=== PATIENT | female | born 1930 | race African-American/Black ===

== ENCOUNTER 2016-11-23 11:23 | Emergency (ER) | payer OTHER ==
[~2016-11-23] VITALS: Ht 165.1 cm; Wt 49.9 kg
--- NOTE | ~2016-11-23 | EKG ---
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
[~2016-11-23 11:23] MED LIST: ACIDOPHILUS1 EAC2 PO; ALLOPURINOL 10100 M1 PO; ASPIR 8181 M1 PO; ASPIRIN81 M2 PO; AUGMENTIN 500-1 EACH PO; DOXYCYCLINE HYC50 MG PO; HYDRALAZINE 10M10 MG PO; IRON325 PO; KEFLEX500 MG PO; LASIX 40 MG TAB40 M1 PO; LASIX 40 MG TAB40 M2 PO; MARINOL 2.5 MG2.5 M1 PO; MULTIVITAMINS PO; PEPCID20 MG PO; POTASSIUM20 PO; PRAMOSONE 1%28.4 GM TP; PROCRIT40000 UNIT SUBQ; REMERON15 MG PO; RENAL CAPS SOFTG1 MG PO; TYLENOL325 MG PO; VITAMIN D 5050000 I1 PO; VITAMIN D400 UNI1 PO; VITAMINC500 PO; [UNRECOGNIZED DRUG - CODE] IJ
[2016-11-23 12:26] LABS: ABSOLUTE NEUTROPHILS 2.1 thou/uL (1.4-8.2); BASOPHILS 0.9 % (0.0-2.0); EOSINOPHILS 1.2 % (0.0-3.0); HEMATOCRIT 37.4 % (37.0-47.0); HEMOGLOBIN 11.9 gm/dL (12.0-15.0); LYMPHOCYTES 20.3 % (24.0-44.0); MCH 30.1 pg (26.0-34.0); MCHC 31.8 g/dL (28.0-37.0); MCV 94.7 fL (80.0-100.0); MONOCYTES 10.9 % (1.0-8.0); PLATELET COUNT 140 thou/uL (150-400); POLYS 66.7 % (36.0-66.0); RBC 3.95 mil/uL (4.20-5.00); RDW 16.1 % (10.5-14.5); WBC 3.1 thou/uL (4.0-11.0)
[2016-11-23 12:28] LABS: MANUAL DIFF NO
[2016-11-23 12:33] LABS: CALCIUM 8.5 mg/dL (8.5-10.1); CREATININE 3.3 mg/dL (0.6-1.0); POTASSIUM 4.2 mmol/L (3.5-5.1)
[2016-11-23 12:45] LABS: TROPONIN-I 0.17 ng/mL (<0.04-0.07)
== END 2016-11-23 15:25 | disposition home or self-care (01) ==
LOC: ER 11:23
PROVIDERS: Emergency Medicine
DX: I48.91 Unspecified atrial fibrillation (principal); M10.9 Gout, unspecified; K21.9 Gastro-esophageal reflux disease without esophagitis; F03.90 Unspecified dementia, unspecified severity, without behavioral disturbance, psychotic disturbance, mood disturbance, and anxiety; I13.0 Hypertensive heart and chronic kidney disease with heart failure and stage 1 through stage 4 chronic kidney disease, or unspecified chronic kidney disease; N18.4 Chronic kidney disease, stage 4 (severe); I50.9 Heart failure, unspecified; Z86.718 Personal history of other venous thrombosis and embolism; Z87.440 Personal history of urinary (tract) infections; Z90.710 Acquired absence of both cervix and uterus; Z86.2 Personal history of diseases of the blood and blood-forming organs and certain disorders involving the immune mechanism; Z86.14 Personal history of Methicillin resistant Staphylococcus aureus infection; Z88.8 Allergy status to other drugs, medicaments and biological substances; Z88.1 Allergy status to other antibiotic agents

== ENCOUNTER 2016-12-07 10:12 | Emergency (ER) | payer OTHER ==
[~2016-12-07] VITALS: Ht 149.9 cm; Wt 47.6 kg
--- NOTE | ~2016-12-07 | EKG ---
[place] [address] [address] [facility] 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 EUGENE : 1930 Requested By: Chirag Huston Order Number: [id number] MD: Galindo Barrios Measurements Intervals [place] Rate: 102 P: ME: QRS: -28 QRSD: 88 T: 130 QT: 372 QTc: 485 Interpretive Statements Atrial fibrillation Borderline left axis deviation Anterior infarct, old Nonspecific T abnormalities, lateral leads Compared to ECG 11/23/2016 12:52:37 No significant change was found Electronically Signed On 12-08-2016 8:05:38 CDT by Galindo Barrios [email or web address] <ELECTRONICALLY SIGNED> By: Galindo Barrios MD, [facility] 12/08/1605 1100 1100 Galindo Barrios MD, [facility] /EPI
[2016-12-07 11:08] LABS: ABSOLUTE NEUTROPHILS 2.3 thou/uL (1.4-8.2); BASOPHILS 0.5 % (0.0-2.0); EOSINOPHILS 3.6 % (0.0-3.0); HEMATOCRIT 38.7 % (37.0-47.0); HEMOGLOBIN 12.2 gm/dL (12.0-15.0); LYMPHOCYTES 15.1 % (24.0-44.0); MCH 30.3 pg (26.0-34.0); MCHC 31.5 g/dL (28.0-37.0); MCV 96.3 fL (80.0-100.0); MONOCYTES 7.3 % (1.0-8.0); POLYS 73.5 % (36.0-66.0); RBC 4.02 mil/uL (4.20-5.00); RDW 16.7 % (10.5-14.5); WBC 3.1 thou/uL (4.0-11.0)
[2016-12-07 11:16] LABS: ABG SAMPLE TYPE ARTERIAL; BE(vivo) -1.7 mmol/L (-2 to +3); HCO3 24.4 mmol/L (22.0-26.0); LACTATE 1.69 mmol/L (0.5-2.0); O2(CT) 16.7 mL/dL (15.0-23.0); O2Hb 91.7 % (92.0-98.0); PCO2 46.3 mmHg (35.0-45.0); PO2 71.1 mmHg (80.0-100.0); STICK SITE R.RADIAL; pH 7.339 (7.360-7.450); sO2 93.3 % (92.0-98.0); tCO2 25.8 mmol/L (24.0-30.0)
[2016-12-07 11:17] LABS: ABG COMMENT NO COMPLICATIONS.
[2016-12-07 11:19] LABS: MANUAL DIFF NO
[2016-12-07 11:22] LABS: CALCIUM 8.3 mg/dL (8.5-10.1); POTASSIUM 4.6 mmol/L (3.5-5.1)
[2016-12-07 11:33] LABS: MAGNESIUM 2.7 mg/dL (1.8-2.4); TOTAL BILIRUBIN 0.5 mg/dL (<0.1-1.0); TOTAL PROTEIN 7.3 g/dL (6.4-8.2); TROPONIN-I 0.19 ng/mL (<0.04-0.07)
[2016-12-07 12:38] LABS: ANISOCYTOSIS SLIGHT; OVALOCYTES FEW; PLATELET COUNT 92 thou/uL (150-400)
== END 2016-12-07 13:50 | disposition home or self-care (01) ==
LOC: ER 10:12
PROVIDERS: Emergency Medicine
DX: I13.0 Hypertensive heart and chronic kidney disease with heart failure and stage 1 through stage 4 chronic kidney disease, or unspecified chronic kidney disease (principal); N18.4 Chronic kidney disease, stage 4 (severe); I50.9 Heart failure, unspecified; I48.91 Unspecified atrial fibrillation; K21.9 Gastro-esophageal reflux disease without esophagitis; F03.90 Unspecified dementia, unspecified severity, without behavioral disturbance, psychotic disturbance, mood disturbance, and anxiety; D69.6 Thrombocytopenia, unspecified; R79.89 Other specified abnormal findings of blood chemistry; D72.819 Decreased white blood cell count, unspecified; Z88.1 Allergy status to other antibiotic agents; Z90.710 Acquired absence of both cervix and uterus; Z86.718 Personal history of other venous thrombosis and embolism; Z88.8 Allergy status to other drugs, medicaments and biological substances

== ENCOUNTER 2016-12-11 10:26 | Inpatient (IN) | payer OTHER ==
[~2016-12-11] VITALS: Ht 152.4 cm; Wt 59.9 kg
--- NOTE | ~2016-12-11 | HC ---
[facility] [place] [address] CONSULTATION Name: JODIE STARR Room #: 216-P ADM IN M.R.#: [id number] Admission: 12/11/16 Attend Phys: Delfino Perez MD Discharge: Date of : 31 Report #: [id number] THIS REPORT FOR: //name// CC: Delfino Souzaloretta [facility] DATE OF SERVICE: 12/13/2016 RENAL CONSULTATION REASON FOR CONSULTATION: Acute on chronic kidney disease. HISTORY OF PRESENT ILLNESS: This 86-year-old female has known advanced chronic kidney disease stage IV. She was hospitalized at [facility] in 11/2015 with acute on chronic kidney disease. I saw her at that time, but I have had no followup since that hospitalization. Her baseline creatinine value at the time of discharge from the hospital in 2015 was as low as 2.4. She presented to the hospital on 12/07/2016 with a creatinine of 3.0. Her creatinine has risen to 3.6, prompting today's renal consultation. The patient has a history of a left pelvic kidney as well as some hydronephrosis on her right kidney as suggested by previous renal ultrasound. The patient was hospitalized at this time with decline in overall status. PAST MEDICAL HISTORY: The patient is a poor historian and unable to provide much in the way of meaningful history. She does have known previous CVA. She has a history of atrial fibrillation, altered mental status, previous decubitus, chronic hypotension, and urinary tract infection. ALLERGIES: Reported to HEPARIN, SULFAMETHOXAZOLE, TRIMETHOPRIM, and VANCOMYCIN. MEDICATIONS: On admission to the hospital are reported to include Tylenol, erythropoietin, Pepcid, aspirin, Tums, Rolando, Nepro, Marinol, and Remeron. FAMILY HISTORY: Negative for renal disease. PERSONAL AND SOCIAL HISTORY: The patient is a long-term resident. She does not smoke, use alcohol, or have any history of substance abuse. REVIEW OF SYSTEMS: Not obtainable from the patient at this time. PHYSICAL EXAMINATION: GENERAL: Reveals an elderly, debilitated female who is poorly communicative, but in no acute distress. VITAL SIGNS: Blood pressure 115/61, pulse 72, temperature 95.9, and [facility] [address] [place] [address] CONSULTATION Name: JODIE STARR Room #: 216-[facility] IN M.R.#: [id number] Admission: 12/11/16 Attend Phys: Delfino Perez MD Discharge: Date of : 31 Report #: [id number] respirations 16. SKIN: Warm and dry. There is 1+ chronic brawny edema changes of the lower extremities bilaterally. HEENT: Mucous membranes are dry. The head is normocephalic and atraumatic. The sclerae are white. Conjunctivae are not injected. The pharynx is benign. NECK: There is no JVD present. Supple. LUNGS: Lung ballesteros are grossly clear to percussion and auscultation. CARDIOVASCULAR: Examination reveals an irregularly irregular rate and rhythm without gross murmur or rub. ABDOMEN: Soft and nontender. GENITOURINARY: There is no Powers catheter in place. NEUROLOGIC: Reveals the patient to be arousable, but a poor historian. She has no focal neurologic deficit. LABORATORY STUDIES: Available at this time include sodium 145, potassium 4.5, chloride 109, CO2 23, BUN 89, creatinine 3.6, glucose 83, calcium 7.9, phosphorus 5.0, and albumin 2.6. White blood cell count 3900, hemoglobin 13.2, hematocrit 40.8, and platelet count 103,000. Urinalysis from admission reveals cloudy yellow urine, specific gravity 1.020, pH 5.0, 2+ protein, 3+ blood, and moderate bacteria seen. ASSESSMENT: 1. Acute kidney injury in this patient who appears relatively dehydrated. I will administer cautious IV isotonic hydration and follow serial laboratory studies, I and O and daily weights. I will place a Powers catheter at this time and obtain a clean urine specimen for analysis and culture. 2. Chronic kidney disease. 3. Generalized debility. 4. Hypertension. 5. History of prior cerebrovascular accident. PLAN: There are no indications for undertaking acute hemodialysis at this time. I do not feel that this patient is a very good candidate for maintenance hemodialysis. I will discuss support measures and likely recommendation to avoid dialysis as possible with the patient's family when they are available. Please see orders. <ELECTRONICALLY SIGNED> By: Tate Christine MD 12/17/16 1020 1229 1354 Tate Christine MD /nt
--- NOTE | ~2016-12-11 | HC ---
[facility] [place] [address] CONSULTATION Name: JODIE STARR Room #: 216-P ADM IN M.R.#: [id number] Admission: 12/11/16 Attend Phys: Delfino Perez MD Discharge: Date of : 31 Report #: [id number] THIS REPORT FOR: //name// CC: Delfino Perez [facility] DATE OF SERVICE: 12/12/2016 CHIEF COMPLAINT: Ulceration to the left lower extremity. HISTORY OF PRESENT ILLNESS: This is an 86-year-old female patient who is lying in bed and contracted. She is unable to answer any questions. She appears to be on a BiPAP device and I have been asked to see her with regard to wound care. The patient is unable to provide any specific information and cannot answer any questions. PAST MEDICAL HISTORY: Positive history of acute on chronic kidney failure, altered mental status, atrial fibrillation, cardiomegaly, chronic kidney disease, cerebrovascular accident, ulceration left leg and thrombocytopenia. ALLERGIES: Include HEPARIN, BACTRIM and VANCOMYCIN. SOCIAL HISTORY: Unknown. REVIEW OF SYSTEMS: Unobtainable due to the patient's level of alertness. MEDICATIONS: At this time include Levaquin, ceftriaxone, aspirin, pantoprazole, clindamycin, calcium carbonate, Atrovent, acetaminophen, polyethylene glycol, nitroglycerin, ondansetron, enoxaparin, levofloxacin, flumazenil, mirtazapine and . PHYSICAL EXAMINATION: VITAL SIGNS: Include temperature 98.0, pulse 83, respiratory rate of 18, blood pressure 105/54. GENERAL: This is a chronically ill-appearing female patient who is lying with her eyes closed with obvious contractures. HEENT: Head is normocephalic. The patient has a BiPAP mask on her face. NECK: Without swelling or obvious tenderness. LUNGS: Diminished. HEART: Regular rhythm. ABDOMEN: Soft. EXTREMITIES: Demonstrate flexion contractures at the hips and knees. She has diminished distal pulses, although the feet appear to be warm and dry. She has an absent left fifth toe that appears to be reasonably well healed. She has 2 small ulcerations on the lateral aspect of the left lower leg as well as a small ulceration on the medial aspect of the left first metatarsophalangeal joint. [address] [address] CONSULTATION Name: JODIE STARR Room #: [address] IN M.R.#: [id number] Admission: 12/11/16 Attend Phys: Delfino Perez MD Discharge: Date of : 31 Report #: [id number] CLINICAL IMPRESSION: 1. Ulceration to the left lower extremity. 2. Venous insufficiency by clinical exam and previous history. RECOMMENDATIONS: At this point in time, we will recommend topical silver foam and Kerlix to the affected areas, pressure relieving boots. She needs to be turned and repositioned every 2 hours. I appreciate being asked to see her in consultation. <ELECTRONICALLY SIGNED> By: Lokesh Schmitt MD 12/13/16 0911 1852 07 Lokesh Schmitt MD /nt
--- NOTE | ~2016-12-11 | 2DMMODE ---
[facility] [address] [place] [address] 2 D/M-MODE ECHOCARDIOGRAM Name: JODIE STARR Room #: 216-P ADM IN M.R.#: [id number] Admission: 12/11/16 Attend Phys: Delfino Perez, Discharge: Date of : 31 Date of Service: 12/12/16 1713 Report #: [id number] THIS REPORT FOR: //name// APPROVED REPORT Study performed: 12/12/2016 13:19:58 EXAM: Comprehensive 2D, Doppler, and color-flow Echocardiogram Patient Location: Bedside Room #: 216 Status: routine Other Information Study Quality: Adequate Technically limited study due to uncooperative patient. Indications Cardiomegaly Hx Atrial Fibrillation, CHF, Stroke 2D Dimensions RVDd: 43.46 mm LVEF(%): 40.24 (>50%) IVSd: 15.80 (7-11mm) LVOT Diam: 20.37 (18-24mm) LVDd: 51.65 mm PWd: 16.33 (7-11mm) Ascending Ao: 30.59 (22-36mm) LVDs: 41.45 (25-40mm) Aortic Root: 33.95 mm Ohara's LVEF: 40.24 % Volumes Left Atrial Volume (Systole) Single Plane 4CH: 98.84 mL Single Plane 2CH: 128.81 mL LA ESV Index: 79.00 mL/m2 Aortic Valve AoV Peak Giovanny.: 1.36 m/s AO Peak Gr.: 7.62 mmHg LVOT Max P.82 mmHg LVOT Max V: 0.67 m/s WILLY Vmax: 1.60 cm2 Mitral Valve IVRT: 119.95 ms Pulmonary Valve [facility] [address] [place] [address] 2 D/M-MODE ECHOCARDIOGRAM Name: JODIE STARR Room #: 216-[facility] IN .R.#: [id number] Admission: 12/11/16 Attend Phys: Delfino Perez, Discharge: Date of : 31 Date of Service: 12/12/16 1713 Report #: [id number] PV Peak Giovanny.: 0.77 m/s PV Peak Gr.: 2.40 mmHg Tricuspid Valve TR Peak Giovanny.: 2.63 m/s RAP Estimate: 10.00 mmHg TR Peak Gr.: 28.08 mmHg Left Ventricle The left ventricle is normal size. There is global hypokinesis of the left ventricle. Moderate concentric left ventricular hypertrophy. Left ventricular systolic function is severely decreased. LVEF is 25-30%. This study is not technically sufficient to allow evaluation of the LV diastolic function due to atrial fibrillation. Right Ventricle Right ventricle is dilated. Right ventricle is hypokinetic. Atria Left atrium is severely dilated. Right atrium is severely dilated. Aortic Valve Aortic valve is thickened and calcified. Trace aortic regurgitation. Mild aortic stenosis. Mitral Valve Moderate mitral annular calcification. Moderate mitral regurgitation. No evidence of mitral valve stenosis. Tricuspid Valve The tricuspid valve leaflets are thickened. There is severe tricuspid regurgitation. The right atrial pressure is estimated at 10 mmHg. There is mild-moderate pulmonary hypertension with an estimated PAP of 40 mmHg. Pulmonic Valve The pulmonary valve is normal in structure. Mild pulmonic regurgitation. Great Vessels The aortic root is normal in size. The ascending aorta is normal in size. IVC is dilated and collapses <50% with inspiration. Pericardium There is no pericardial effusion. Pleural Effusion [facility] [address] [place] [address] 2 D/M-MODE ECHOCARDIOGRAM Name: JODIE STARR Room #: 216-P [facility] IN M.R.#: [id number] Admission: 12/11/16 Attend Phys: Delfino Perez, Discharge: Date of : 31 Date of Service: 12/12/16 1713 Report #: [id number] noted. <Conclusion> Left ventricular systolic function is severely decreased. There is global hypokinesis of the left ventricle. LVEF 25%. Right ventricle is dilated. Both atria are severely dilated. Aortic valve is thickened and calcified. Mild aortic stenosis, no insufficiency. Moderate mitral annular calcification. Moderate mitral insufficiency There is mild-moderate pulmonary hypertension with an estimated PAP of 40 mmHg. There is no pericardial effusion. <ELECTRONICALLY SIGNED> By: Galindo Barrios MD, FAC 12/12/161712 12 12 Galindo Barrios MD, FACC /INF
--- NOTE | ~2016-12-11 | EKG ---
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 : 1930 Requested By: Jenny Gann Order Number: [id number] MD: Varun Pardo Measurements Intervals [place] Rate: 98 P: ND: QRS: -33 QRSD: 90 T: 133 QT: 371 QTc: 474 Interpretive Statements Atrial fibrillation Left axis deviation Anterior infarct, old Nonspecific T abnormalities, lateral leads Compared to ECG 12/07/2016 11:00:07 No significant changes Electronically Signed On 12-12-2016 12:48:05 CDT by Varun Pardo [email or web address] <ELECTRONICALLY SIGNED> By: Varun Pardo MD 12/12/16 1248 1046 1046 Varun Pardo MD /[facility]
--- NOTE | ~2016-12-11 | HC ---
[facility] [place] [address] CONSULTATION Name: JODIE STARR Room #: 216-P ADM IN M.R.#: [id number] Admission: 12/11/16 Attend Phys: Delfino Perez MD Discharge: Date of : 31 Report #: [id number] THIS REPORT FOR: //name// CC: Delfino Louis PRIMARY CARE PHYSICIAN: Rojas Louis MD. REFERRAL PHYSICIAN: Delfino Perez MD. REASON FOR REFERRAL: Hypoxia. HISTORY OF PRESENT ILLNESS: The patient is an 86-year-old female who was brought to the Emergency Room from [facility] with acute mental status change. She was found to be hypoxic. A pulmonary consultation was requested. The patient was admitted yesterday through the ER. She was felt to have urinary tract infection. She was on 2 liters of O2. She was placed on noninvasive positive pressure ventilation for an apparent acute hypercarbia with altered mental status. Although she is arousable, she remains quite somnolent, falling asleep quite easily. When she was admitted yesterday, she was not coherent though arousable. Otherwise, no recent febrile illness, nausea, vomiting, diarrhea, chest pain or productive cough. Portable chest x-ray on admission revealed cardiomegaly suggestive of biventricular enlargement along with enlarged right atrial border. PAST MEDICAL HISTORY: Notable for chronic kidney disease, stage 4; hypertension; history of DVT; atrial fibrillation, not on anticoagulants due to reaction to HEPARIN; history of recurrent UTIs; chronic venous stasis with chronic lower extremity wounds bilaterally; gout; peripheral vascular disease; anemia of chronic disease; anorexia; gastroesophageal reflux disease; dementia; cervical spinal stenosis, radiculopathy leading to progressive weakness. PAST SURGICAL HISTORY: Remarkable for hysterectomy for uterine fibroids. Left fifth toe amputation. ALLERGIES: HEPARIN, reactions unspecified, but she tolerates Lovenox; BACTRIM; VANCOMYCIN, reactions unspecified. MEDICATIONS: Reviewed, which include Procrit, Pepcid, aspirin, Tums, calcium supplements, Nephro, Marinol, Remeron. [address] [address] CONSULTATION Name: JODIE STARR Room #: 216-P [facility] IN M.R.#: [id number] Admission: 12/11/16 Attend Phys: Delfino Perez MD Discharge: Date of : 31 Report #: [id number] FAMILY HISTORY: Noncontributory. SOCIAL HISTORY: She has smoked remotely in the past, but quit many years ago. There is no history of alcohol use. She currently resides at [facility]. REVIEW OF SYSTEMS: Deferred as the patient is very somnolent. PHYSICAL EXAMINATION: GENERAL: She is arousable, but quite somnolent, tolerating BiPAP. VITAL SIGNS: Temperature is 98 degrees Fahrenheit, pulse is 100, respiratory rate is 18, blood pressure 100/54 mmHg, saturation 100%. HEENT: Normocephalic, atraumatic. NECK: Supple, without lymphadenopathy or thyromegaly. CHEST: Breath sounds are decreased due to poor effort. No obvious wheezes or rales. CARDIOVASCULAR: Normal S1, S2. There are no murmurs or gallop. There is no JVD. There is no carotid bruit. Pulses are 2+/4+ bilaterally. BREASTS: Deferred. ABDOMEN: Soft, nontender. GENITOURINARY AND RECTAL: Deferred. EXTREMITIES: No cyanosis, clubbing, edema. MUSCULOSKELETAL: Notable for moderate muscle atrophy diffusely. LABORATORY DATA: Chest x-ray as mentioned above showing marked cardiomegaly with what appears to be right-sided heart enlargement including right atrium, mild left lower lobe opacity. Electrolytes: Sodium 144, potassium 4.6, chloride 108, CO2 is 22, BUN is 94, creatinine is 3.3. Liver function tests are grossly unremarkable. WBC is 4000, hemoglobin 12.9, platelets mildly reduced 107,000. Troponin 0.19, albumin 2.7. Arterial blood gas revealed pH 7.32, pCO2 of 44, pO2 57 on FiO2 40%. IMPRESSION: 1. Acute hypoxic, hypercapnic respiratory failure in this 86-year-old female. Etiology is related to presumed sepsis leading to toxic encephalopathy leading to hypoventilation. No prior history of chronic lung disease. 2. Urinary tract infection with sepsis. 3. Encephalopathy due to above, toxic and metabolic. 4. Acute on chronic kidney failure, chronic kidney disease, now with mild metabolic acidosis. 5. Dementia. 6. Remote history of deep venous thrombosis. 7. Chronic atrial fibrillation, apparently not on anticoagulation with an apparent reaction to heparin products in the past. 8. Peripheral vascular disease. [facility] [address] [place] [address] CONSULTATION Name: BRUCERENJODIE Room #: 216-P ADM IN M.R.#: [id number] Admission: 12/11/16 Attend Phys: Delfino Perez MD Discharge: Date of : 31 Report #: [id number] 9. Cervical spinal stenosis with radiculopathy leading to progressive weakness and debility. 10. Protein calorie malnutrition, severe. RECOMMENDATION: We will continue noninvasive positive pressure ventilation, wean O2 for saturation 90%. In terms of cardiomegaly, recommend echocardiogram to assess LV function, pulmonary artery pressures. Chest x-ray suggests probable right-sided enlargement also. DVT and GI prophylaxis will be addressed. Overall, prognosis felt to be guarded given advanced age, dementia, generalized debility and weakness. If encephalopathy and somnolence persists or worsens, we recommend ICU monitoring. Thank you for this consultation. <ELECTRONICALLY SIGNED> By: Robert Ibrahim MD 12/16/16 1600 1236 1840 Robert Ibrahim MD /nt
[2016-12-11 10:26] VITALS: BP 114/68
[2016-12-11 10:52] LABS: ABSOLUTE NEUTROPHILS 3.1 thou/uL (1.4-8.2); BASOPHILS 0.8 % (0.0-2.0); EOSINOPHILS 1.2 % (0.0-3.0); HEMATOCRIT 39.6 % (37.0-47.0); HEMOGLOBIN 12.9 gm/dL (12.0-15.0); LYMPHOCYTES 11.1 % (24.0-44.0); MCH 30.6 pg (26.0-34.0); MCHC 32.5 g/dL (28.0-37.0); MCV 94.3 fL (80.0-100.0); MONOCYTES 10.1 % (1.0-8.0); POLYS 76.8 % (36.0-66.0); RDW 17.5 % (10.5-14.5)
[2016-12-11 10:55] LABS: MANUAL DIFF NO
[2016-12-11 11:15] LABS: ANISOCYTOSIS 1+; LARGE PLATELETS SEVERAL; PLATELET COUNT 107 thou/uL (150-400); POLYCHROMASIA 1+
[2016-12-11 11:43] LABS: CALCIUM 8.8 mg/dL (8.5-10.1); CREATININE 3.1 mg/dL (0.6-1.0)
[2016-12-11 11:48] LABS: URINE BILIRUBIN NEGATIVE (Negative); URINE BLOOD 3+ (Negative); URINE COLOR YELLOW; URINE GLUCOSE-RANDOM* NEGATIVE (Negative); URINE KETONES NEGATIVE (Negative); URINE NITRITE NEGATIVE (Negative); URINE PROTEIN (DIPSTICK) 2+ (Negative); URINE UROBILINOGEN 0.2 E.U./dl (0.2-1.0)
[2016-12-11 12:09] LABS: CASTS None Seen /LPF (None Seen); SQUAMOUS >10 Many /LPF (0-3)
[2016-12-11 12:10] LABS: URINE RBC 3-10 Few /HPF (0-2); URINE WBC >25 Many /HPF (0-5)
[2016-12-11 12:11] LABS: CRYSTALS None Seen /LPF (None Seen); WBC CLUMPS Moderate (None Seen)
[2016-12-11 14:03] LABS: ABG SAMPLE TYPE ARTERIAL; BE(vivo) -0.8 mmol/L (-2 to +3); HCO3 25.4 mmol/L (22.0-26.0); LACTATE 2.13 mmol/L (0.5-2.0); O2(CT) 16.3 mL/dL (15.0-23.0); O2Hb 84.5 % (92.0-98.0); PCO2 47.8 mmHg (35.0-45.0); PO2 53.8 mmHg (80.0-100.0); pH 7.343 (7.360-7.450); sO2 85.9 % (92.0-98.0); tCO2 26.9 mmol/L (24.0-30.0)
[2016-12-11 14:04] LABS: STICK SITE R.RADIAL
[2016-12-11] MEDS ORDERED: JUVEN PACKET1 EACH PO (14:44)
[2016-12-11] MEDS ORDERED: TUMS PO (14:44)
[2016-12-11] MEDS ORDERED: NEPRO CARB STE237 ML PO (14:45)
[2016-12-11] MEDS ORDERED: MARINOL2.5 MG PO (14:46)
[2016-12-11] MEDS ORDERED: REMERON15 MG PO (14:47)
[2016-12-11 14:52] VITALS: BP 109/89
[2016-12-11 15:52] LABS: ABG SAMPLE TYPE ARTERIAL; BE(vivo) -2.1 mmol/L (-2 to +3); HCO3 24.2 mmol/L (22.0-26.0); LACTATE 2.24 mmol/L (0.5-2.0); O2(CT) 18.8 mL/dL (15.0-23.0); O2Hb 95.7 % (92.0-98.0); PCO2 47.5 mmHg (35.0-45.0); PO2 92.9 mmHg (80.0-100.0); STICK SITE R.RADIAL; pH 7.325 (7.360-7.450); sO2 96.5 % (92.0-98.0); tCO2 25.7 mmol/L (24.0-30.0)
[2016-12-11 16:00] VITALS: BP 125/83
[2016-12-11 20:23] VITALS: BP 117/78
[2016-12-11 23:30] VITALS: BP 139/79; BP 87/53
[2016-12-12 05:00] VITALS: BP 97/56
[2016-12-12 07:27] VITALS: BP 105/54
[2016-12-12 10:08] LABS: ALBUMIN 2.7 g/dL (3.4-5.0); CALCIUM 8.2 mg/dL (8.5-10.1); CREATININE 3.3 mg/dL (0.6-1.0); POTASSIUM 4.6 mmol/L (3.5-5.1); TOTAL BILIRUBIN 0.7 mg/dL (<0.1-1.0); TOTAL PROTEIN 6.9 g/dL (6.4-8.2)
[2016-12-12 10:29] LABS: ABG SAMPLE TYPE ARTERIAL; BE(vivo) -3.3 mmol/L (-2 to +3); HCO3 22.7 mmol/L (22.0-26.0); LACTATE 2.38 mmol/L (0.5-2.0); O2(CT) 16.5 mL/dL (15.0-23.0); O2Hb 88.1 % (92.0-98.0); PCO2 44.2 mmHg (35.0-45.0); PO2 57.8 mmHg (80.0-100.0); sO2 88.1 % (92.0-98.0)
[2016-12-12 10:30] LABS: STICK SITE R.BRACHIAL; pH 7.328 (7.360-7.450)
[2016-12-12 10:32] LABS: Pressure Support 8 cm H20
[2016-12-12 11:17] VITALS: BP 105/64
[2016-12-12 14:51] LABS: ABG SAMPLE TYPE ARTERIAL; BE(vivo) -3.3 mmol/L (-2 to +3); HCO3 22.6 mmol/L (22.0-26.0); O2(CT) 18.7 mL/dL (15.0-23.0); O2Hb 96.3 % (92.0-98.0); PCO2 43.6 mmHg (35.0-45.0); pH 7.332 (7.360-7.450); sO2 97.4 % (92.0-98.0); tCO2 23.9 mmol/L (24.0-30.0)
[2016-12-12 14:52] LABS: STICK SITE R.RADIAL
[2016-12-12 20:09] VITALS: BP 103/65
[2016-12-13 03:47] VITALS: BP 76/51
[2016-12-13 04:04] LABS: ALBUMIN 2.6 g/dL (3.4-5.0); CALCIUM 7.9 mg/dL (8.5-10.1); CREATININE 3.6 mg/dL (0.6-1.0); POTASSIUM 4.5 mmol/L (3.5-5.1)
[2016-12-13 04:33] LABS: WBC 3.9 thou/uL (4.0-11.0)
[2016-12-13 04:35] LABS: HEMATOCRIT 36.1 % (37.0-47.0); HEMOGLOBIN 11.6 gm/dL (12.0-15.0); MCH 30.4 pg (26.0-34.0); MCHC 32.1 g/dL (28.0-37.0); MCV 94.8 fL (80.0-100.0); RBC 3.81 mil/uL (4.20-5.00)
[2016-12-13 12:17] VITALS: BP 115/61
[2016-12-13 13:50] LABS: URINE BILIRUBIN NEGATIVE (Negative); URINE BLOOD 3+ (Negative); URINE COLOR YELLOW; URINE GLUCOSE-RANDOM* NEGATIVE (Negative); URINE KETONES NEGATIVE (Negative); URINE NITRITE NEGATIVE (Negative); URINE PROTEIN (DIPSTICK) 1+ (Negative); URINE UROBILINOGEN 0.2 E.U./dl (0.2-1.0)
[2016-12-13 14:09] LABS: AMORPHOUS URATES Moderate /LPF (None Seen); BACTERIA >30 Many /HPF (None Seen); CASTS None Seen /LPF (None Seen); SQUAMOUS None Seen /LPF (0-3); URINE RBC >20 Many /HPF (0-2); URINE WBC >25 Many /HPF (0-5)
[2016-12-13 16:52] VITALS: BP 90/57
[2016-12-13 19:41] VITALS: BP 122/81
[2016-12-14 03:26] VITALS: BP 104/74
[2016-12-14 04:09] LABS: ALBUMIN 2.9 g/dL (3.4-5.0); CREATININE 3.9 mg/dL (0.6-1.0); PHOSPHORUS 5.4 mg/dL (2.5-4.9); POTASSIUM 4.7 mmol/L (3.5-5.1)
[2016-12-14 04:16] LABS: HEMOGLOBIN 12.1 gm/dL (12.0-15.0)
[2016-12-14 04:18] LABS: HEMATOCRIT 37.4 % (37.0-47.0); MCH 30.7 pg (26.0-34.0); MCHC 32.4 g/dL (28.0-37.0); MCV 94.8 fL (80.0-100.0); RBC 3.95 mil/uL (4.20-5.00); RDW 16.8 % (10.5-14.5); WBC 3.9 thou/uL (4.0-11.0)
[2016-12-14 07:55] VITALS: BP 129/99
[2016-12-14 12:10] VITALS: BP 108/80
[2016-12-14 15:55] VITALS: BP 102/70
[2016-12-14 19:53] VITALS: BP 109/77
[2016-12-15 04:04] LABS: ALBUMIN 3.1 g/dL (3.4-5.0); CREATININE 4.3 mg/dL (0.6-1.0); PHOSPHORUS 5.7 mg/dL (2.5-4.9); POTASSIUM 4.9 mmol/L (3.5-5.1)
[2016-12-15 04:08] LABS: WBC 3.9 thou/uL (4.0-11.0)
[2016-12-15 04:11] LABS: HEMATOCRIT 40.8 % (37.0-47.0); HEMOGLOBIN 13.2 gm/dL (12.0-15.0); MCH 30.9 pg (26.0-34.0); MCHC 32.3 g/dL (28.0-37.0); MCV 95.8 fL (80.0-100.0); RBC 4.26 mil/uL (4.20-5.00); RDW 17.1 % (10.5-14.5)
[2016-12-15 04:16] VITALS: BP 97/55
[2016-12-15 08:32] VITALS: BP 106/68
[2016-12-15 11:38] VITALS: BP 107/81
[2016-12-15 15:30] VITALS: BP 105/64
[2016-12-15 20:30] VITALS: BP 125/93
[2016-12-16 00:01] VITALS: BP 149/110
[2016-12-16 04:40] VITALS: BP 151/111
[2016-12-16 06:05] LABS: HEMATOCRIT 37.5 % (37.0-47.0)
[2016-12-16 06:09] LABS: HEMOGLOBIN 11.9 gm/dL (12.0-15.0); MCH 30.7 pg (26.0-34.0); MCHC 31.7 g/dL (28.0-37.0); MCV 96.7 fL (80.0-100.0); RBC 3.87 mil/uL (4.20-5.00); RDW 17.4 % (10.5-14.5); WBC 4.5 thou/uL (4.0-11.0)
[2016-12-16 06:19] LABS: CALCIUM 7.5 mg/dL (8.5-10.1); CREATININE 4.4 mg/dL (0.6-1.0); POTASSIUM 4.3 mmol/L (3.5-5.1)
[2016-12-16 12:05] VITALS: BP 119/80
[2016-12-16 16:10] VITALS: BP 100/65
[2016-12-16 20:52] VITALS: BP 103/69
[2016-12-17 04:49] VITALS: BP 107/83
[2016-12-17 05:21] LABS: CALCIUM 7.9 mg/dL (8.5-10.1); CREATININE 4.7 mg/dL (0.6-1.0); POTASSIUM 4.4 mmol/L (3.5-5.1)
[2016-12-17 07:15] VITALS: BP 116/6
[2016-12-17 11:51] VITALS: BP 109/79
[2016-12-17 16:05] VITALS: BP 147/81
[2016-12-17 21:38] VITALS: BP 120/68
[2016-12-18 03:03] LABS: CALCIUM 7.9 mg/dL (8.5-10.1); CREATININE 4.8 mg/dL (0.6-1.0)
[2016-12-18 03:07] LABS: POTASSIUM 5.4 mmol/L (3.5-5.1)
[2016-12-18 06:00] VITALS: BP 121/76
[2016-12-18 07:45] VITALS: BP 109/77
[2016-12-18 12:28] VITALS: BP 132/90
[2016-12-18 15:10] LABS: URINE BILIRUBIN NEGATIVE (Negative); URINE BLOOD 3+ (Negative); URINE COLOR YELLOW; URINE GLUCOSE-RANDOM* NEGATIVE (Negative); URINE KETONES NEGATIVE (Negative); URINE LEUKOCYTES-REFLEX 3+ (Negative); URINE PROTEIN (DIPSTICK) NEGATIVE (Negative); URINE UROBILINOGEN 0.2 E.U./dl (0.2-1.0)
[2016-12-18 15:19] LABS: SQUAMOUS 0-3 Few /LPF (0-3); YEAST-REFLEX Present (None Seen)
[2016-12-18 15:20] LABS: CASTS None Seen /LPF (None Seen); CRYSTALS None Seen /LPF (None Seen)
[2016-12-18 18:11] VITALS: BP 112/64
[2016-12-18 19:38] VITALS: BP 114/65
[2016-12-19 03:03] LABS: ABSOLUTE NEUTROPHILS 3.9 thou/uL (1.4-8.2); BASOPHILS 1.2 % (0.0-2.0); EOSINOPHILS 2.1 % (0.0-3.0); HEMATOCRIT 37.5 % (37.0-47.0); HEMOGLOBIN 12.1 gm/dL (12.0-15.0); LYMPHOCYTES 11.7 % (24.0-44.0); MANUAL DIFF NO; MCH 30.7 pg (26.0-34.0); MCHC 32.3 g/dL (28.0-37.0); MCV 94.8 fL (80.0-100.0); MONOCYTES 7.8 % (1.0-8.0); PLATELET COUNT 99 thou/uL (150-400); POLYS 77.2 % (36.0-66.0); RBC 3.96 mil/uL (4.20-5.00); RDW 17.5 % (10.5-14.5); WBC 5.5 thou/uL (4.0-11.0)
[2016-12-19 03:14] LABS: ALBUMIN 2.8 g/dL (3.4-5.0); CALCIUM 7.6 mg/dL (8.5-10.1); CREATININE 4.8 mg/dL (0.6-1.0); MAGNESIUM 2.4 mg/dL (1.8-2.4); PHOSPHORUS 5.8 mg/dL (2.5-4.9); TOTAL PROTEIN 6.8 g/dL (6.4-8.2)
[2016-12-19 03:15] LABS: POTASSIUM 4.4 mmol/L (3.5-5.1)
[2016-12-19 05:53] VITALS: BP 106/73
[2016-12-19 09:03] VITALS: BP 155/76
[2016-12-19 18:12] VITALS: BP 115/66
[2016-12-19 20:00] VITALS: BP 114/75
[2016-12-20 03:10] LABS: ALBUMIN 2.8 g/dL (3.4-5.0); CALCIUM 7.4 mg/dL (8.5-10.1); CREATININE 4.6 mg/dL (0.6-1.0); MAGNESIUM 2.3 mg/dL (1.8-2.4); PHOSPHORUS 5.9 mg/dL (2.5-4.9); POTASSIUM 4.9 mmol/L (3.5-5.1)
[2016-12-20 03:43] VITALS: BP 125/70
[2016-12-20 08:55] VITALS: BP 130/75
[2016-12-20 12:30] VITALS: BP 108/67
[2016-12-20 17:40] VITALS: BP 132/98
[2016-12-20 19:34] VITALS: BP 120/76
[2016-12-21 03:26] LABS: CALCIUM 7.4 mg/dL (8.5-10.1); CREATININE 4.7 mg/dL (0.6-1.0)
[2016-12-21 04:26] VITALS: BP 110/65
[2016-12-21 12:00] VITALS: BP 119/64
[2016-12-21] MEDS ORDERED: DUONEB 2.5-0.5 M3 ML INH (14:08)
[2016-12-21] MEDS ORDERED: MARINOL2.5 MG PO (14:08)
[2016-12-21] MEDS ORDERED: LASIX 80 MG TAB80 MG PO (14:08)
[2016-12-21] MEDS ORDERED: CLEOCIN HCL150 MG PO (14:08)
[2016-12-21] MEDS ORDERED: MIRALAX17 GM PO (14:08)
== END 2016-12-21 16:50 | DRG 871 ==
LOC: ER 10:26 → EROBS 13:38 → 2N 13:38
PROVIDERS: Emergency Medicine; Hospitalist; Internal Medicine; Internal Medicine Endocrinology, Diabetes & Metabolism; Internal Medicine Nephrology; Internal Medicine Pulmonary Disease
PROC: B5181ZA Fluoroscopy of Superior Vena Cava using Low Osmolar Contrast, Guidance (ICD-10-PCS; 2016-12-13)
PROC: 02HV33Z Insertion of Infusion Device into Superior Vena Cava, Percutaneous Approach (ICD-10-PCS; 2016-12-13)
PROC: B548ZZA Ultrasonography of Superior Vena Cava, Guidance (ICD-10-PCS; 2016-12-13)
PROC: 5A09357 Assistance with Respiratory Ventilation, Less than 24 Consecutive Hours, Continuous Positive Airway Pressure (ICD-10-PCS; principal; 2016-12-16)
DX: A41.9 Sepsis, unspecified organism (principal); J96.01 Acute respiratory failure with hypoxia; J96.02 Acute respiratory failure with hypercapnia; G92 Toxic encephalopathy; E43 Unspecified severe protein-calorie malnutrition; N17.9 Acute kidney failure, unspecified; N39.0 Urinary tract infection, site not specified; I42.9 Cardiomyopathy, unspecified; L97.929 Non-pressure chronic ulcer of unspecified part of left lower leg with unspecified severity; I13.0 Hypertensive heart and chronic kidney disease with heart failure and stage 1 through stage 4 chronic kidney disease, or unspecified chronic kidney disease; N18.4 Chronic kidney disease, stage 4 (severe); M10.9 Gout, unspecified; K21.9 Gastro-esophageal reflux disease without esophagitis; F03.90 Unspecified dementia, unspecified severity, without behavioral disturbance, psychotic disturbance, mood disturbance, and anxiety; D63.8 Anemia in other chronic diseases classified elsewhere; I48.2 Chronic atrial fibrillation; Z68.25 Body mass index [BMI] 25.0-25.9, adult; D69.6 Thrombocytopenia, unspecified; E78.5 Hyperlipidemia, unspecified; E16.2 Hypoglycemia, unspecified; Z86.718 Personal history of other venous thrombosis and embolism; L89.152 Pressure ulcer of sacral region, stage 2; I50.9 Heart failure, unspecified; Z90.710 Acquired absence of both cervix and uterus; Z88.2 Allergy status to sulfonamides; Z88.1 Allergy status to other antibiotic agents; Z88.8 Allergy status to other drugs, medicaments and biological substances; Z89.422 Acquired absence of other left toe(s); Z87.891 Personal history of nicotine dependence; Z86.73 Personal history of transient ischemic attack (TIA), and cerebral infarction without residual deficits; Z79.82 Long term (current) use of aspirin; Z79.899 Other long term (current) drug therapy; Z86.14 Personal history of Methicillin resistant Staphylococcus aureus infection
CPT/HCPCS: 10081

== ENCOUNTER 2016-12-22 08:15 | Emergency (ER) | payer OTHER ==
[~2016-12-22] VITALS: Ht 152.4 cm; Wt 79.4 kg
[~2016-12-22 08:15] MED LIST changes: +CLEOCIN HCL150 MG PO; +DUONEB 2.5-0.5 M3 ML INH; +JUVEN PACKET1 EACH PO; +LASIX 80 MG TAB80 MG PO; +MARINOL2.5 MG PO; +MIRALAX17 GM PO; +NEPRO CARB STE237 ML PO; +TUMS PO
[2016-12-22 08:56] LABS: ABG SAMPLE TYPE ARTERIAL; BE(vivo) -2.2 mmol/L (-2 to +3); LACTATE 1.83 mmol/L (0.5-2.0); O2(CT) 16.8 mL/dL (15.0-23.0); PCO2 46.6 mmHg (35.0-45.0); PO2 60.7 mmHg (80.0-100.0); STICK SITE L.RADIAL; sO2 89.5 % (92.0-98.0); tCO2 25.4 mmol/L (24.0-30.0)
[2016-12-22 09:25] LABS: ABSOLUTE NEUTROPHILS 5.2 thou/uL (1.4-8.2); BASOPHILS 0.3 % (0.0-2.0); EOSINOPHILS 2.2 % (0.0-3.0); HEMATOCRIT 41.1 % (37.0-47.0); HEMOGLOBIN 13.1 gm/dL (12.0-15.0); LYMPHOCYTES 11.1 % (24.0-44.0); MCH 31.2 pg (26.0-34.0); MCHC 31.9 g/dL (28.0-37.0); MCV 97.7 fL (80.0-100.0); MONOCYTES 8.1 % (1.0-8.0); PLATELET COUNT 105 thou/uL (150-400); POLYS 78.3 % (36.0-66.0); WBC 6.7 thou/uL (4.0-11.0)
[2016-12-22 09:31] LABS: MANUAL DIFF NO
[2016-12-22 09:36] LABS: CALCIUM 7.9 mg/dL (8.5-10.1); CREATININE 4.4 mg/dL (0.6-1.0)
[2016-12-22 09:39] LABS: POTASSIUM 4.8 mmol/L (3.5-5.1)
[2016-12-22 09:40] LABS: ALBUMIN 2.6 g/dL (3.4-5.0); DIRECT BILIRUBIN 0.3 mg/dL (<0.1-0.3); TOTAL BILIRUBIN 1.3 mg/dL (<0.1-1.0); TOTAL PROTEIN 6.7 g/dL (6.4-8.2)
== END 2016-12-22 14:10 | disposition home or self-care (01) ==
LOC: ER 08:15
PROVIDERS: Emergency Medicine
DX: R41.82 Altered mental status, unspecified (principal); E16.2 Hypoglycemia, unspecified; Z88.8 Allergy status to other drugs, medicaments and biological substances; Z88.1 Allergy status to other antibiotic agents; Z88.2 Allergy status to sulfonamides

== ENCOUNTER 2017-01-31 19:54 | Inpatient (IN) | payer OTHER ==
[~2017-01-31] VITALS: Ht 160 cm; Wt 56.8 kg
--- NOTE | ~2017-01-31 | HC ---
[facility] [address] [place] [place] [address] CONSULTATION Name: JODIE STARR Room #: 450-P ADM IN M.R.#: [id number] Admission: 02/01/17 Attend Phys: Martin Salazar Discharge: Date of : 31 Report #: [id number] THIS REPORT FOR: //name// CC: Catalino Louis DATE OF SERVICE: 02/01/2017 CHIEF COMPLAINT: Lower extremity and coccygeal pressure ulceration. HISTORY OF PRESENT ILLNESS: This is an 87-year-old -[place] female patient with whom I am familiar from prior hospitalization, this is a new hospitalization for a previously seen patient. The patient is noncommunicative, but was admitted from [facility] with shortness of air. She reportedly has had a cough. She has had chronic ulcerations to the left lower extremity and possibly to the sacrococcygeal region. I have been asked to see her in this regard. PAST MEDICAL HISTORY: Positive for history of acute on chronic renal failure, altered mental status, atrial fibrillation, cardiomegaly, bilateral lower extremity contractures, chronic ulcerations to the left lower extremity, chronic kidney disease, previous cerebrovascular accident, hypoglycemia, hypotension, and previous myocardial infarction. ALLERGIES: To HEPARIN, SULFA, and VANCOMYCIN. SOCIAL HISTORY: The patient lives in a nursing care facility. There is no recent history of alcohol or tobacco use. FAMILY HISTORY: Unknown and not obtainable from the patient. REVIEW OF SYSTEMS: Unknown and not obtainable from the patient due to her mental status. PHYSICAL EXAMINATION: VITAL SIGNS: At this time include pulse rate 74, respiratory rate 20, blood pressure , temperature 98.9, and pulse oximetry 97%. GENERAL: This is a chronically ill-appearing female patient who appears to be in minimal distress. HEAD: Normocephalic. NECK: Supple. LUNGS: Diminished. HEART: Regular rhythm. ABDOMEN: Soft, nontender. EXTREMITIES: Examination of the sacrococcygeal region demonstrates a very small stage 2 pressure ulceration over the coccyx as a stage II, it is very [facility] [address] [place] [address] CONSULTATION Name: JODIE STARR Room #: 450-[facility] IN M.R.#: [id number] Admission: 02/01/17 Attend Phys: Martin Salazar Discharge: Date of : 31 Report #: [id number] superficial and certainly not infected with no tunneling or undermining noted at this time. Lower extremities demonstrate flexion contractures at the hips and knees. The patient has significant multiple ulcerations to the left lower leg, they do not appear to be overtly infected, although covered with a significant surface area and although are not entirely circumferential to encompass a good portion of the circumference of the lower leg. The patient does have a small ulceration on the right lateral lower leg that was not present on prior hospitalization that remains superficial. It is unclear as to whether this is abrasion, it does not appear to be pressure related. CLINICAL IMPRESSION: 1. Stage II coccygeal pressure ulceration. 2. Abrasion on the right lateral lower leg. 3. Multiple ulcerations to the left lower leg probably related to both venous insufficiency and possibly underlying arterial disease, none of these areas appeared to be infected. RECOMMENDATIONS: At this point in time, we will recommend a barrier cream with zinc oxide to the sacrococcygeal region. She will need to be turned and repositioned every 2 hours while in bed. We will recommend an Optifoam to be applied to the right lateral lower leg, to be changed 3 days per week and as needed. We will recommend gentamicin ointment, Xeroform gauze, ABD, Kerlix and Brad wrap to the left lower extremity. I appreciate being asked to see the patient in consultation. <ELECTRONICALLY SIGNED> By: Lokesh Schmitt MD 02/02/17 1245 1638 1729 Lokesh Schmitt MD /nt
[2017-01-31 19:54] VITALS: BP 137/82
[2017-01-31 21:35] LABS: ABSOLUTE NEUTROPHILS 2.4 thou/uL (1.4-8.2); BASOPHILS 1.3 % (0.0-2.0); EOSINOPHILS 1.8 % (0.0-3.0); HEMATOCRIT 36.1 % (37.0-47.0); HEMOGLOBIN 11.4 gm/dL (12.0-15.0); LYMPHOCYTES 21.9 % (24.0-44.0); MCHC 31.6 g/dL (28.0-37.0); MCV 98.3 fL (80.0-100.0); MONOCYTES 10.8 % (1.0-8.0); PLATELET COUNT 126 thou/uL (150-400); POLYS 64.2 % (36.0-66.0); RBC 3.68 mil/uL (4.20-5.00); RDW 17.5 % (10.5-14.5); WBC 3.7 thou/uL (4.0-11.0)
[2017-01-31 21:36] LABS: MANUAL DIFF NO
[2017-01-31 21:43] LABS: CALCIUM 9.1 mg/dL (8.5-10.1); CREATININE 2.7 mg/dL (0.6-1.0); POTASSIUM 3.8 mmol/L (3.5-5.1)
[2017-01-31 21:48] LABS: DIRECT BILIRUBIN 0.3 mg/dL (<0.1-0.3); TOTAL BILIRUBIN 0.6 mg/dL (<0.1-1.0); TOTAL PROTEIN 7.9 g/dL (6.4-8.2)
[2017-01-31 22:12] LABS: URINE BILIRUBIN NEGATIVE (Negative); URINE BLOOD 2+ (Negative); URINE COLOR YELLOW; URINE GLUCOSE-RANDOM* NEGATIVE (Negative); URINE KETONES NEGATIVE (Negative); URINE NITRITE NEGATIVE (Negative); URINE PROTEIN (DIPSTICK) 3+ (Negative); URINE UROBILINOGEN 0.2 E.U./dl (0.2-1.0)
[2017-01-31 22:22] LABS: INR 1.6; PROTIME 16.7 Seconds (9.3-11.4)
[2017-01-31 22:25] LABS: SQUAMOUS 0-3 Few /LPF (0-3)
[2017-01-31 22:26] LABS: BACTERIA 1-9 Few /HPF (None Seen); CASTS None Seen /LPF (None Seen); CRYSTALS None Seen /LPF (None Seen)
[2017-01-31 22:27] LABS: AMORPHOUS URATES Moderate /LPF (None Seen)
[2017-02-01 01:23] VITALS: BP 144/92
[2017-02-01 01:35] VITALS: BP 142/86
[2017-02-01 04:21] VITALS: BP 149/73
[2017-02-01 08:17] VITALS: BP 133/56
[2017-02-01 13:30] VITALS: BP 148/68
[2017-02-01 19:49] VITALS: BP 139/50
[2017-02-02 03:37] VITALS: BP 114/73
[2017-02-02 05:31] LABS: HEMATOCRIT 35.5 % (37.0-47.0); HEMOGLOBIN 11.3 gm/dL (12.0-15.0); MCH 31.1 pg (26.0-34.0); MCHC 31.8 g/dL (28.0-37.0); RBC 3.62 mil/uL (4.20-5.00); RDW 17.8 % (10.5-14.5); WBC 7.9 thou/uL (4.0-11.0)
[2017-02-02 05:40] LABS: INR 1.8; PROTIME 18.2 Seconds (9.3-11.4)
[2017-02-02 05:47] LABS: ALBUMIN 2.6 g/dL (3.4-5.0); CALCIUM 8.4 mg/dL (8.5-10.1); CREATININE 2.8 mg/dL (0.6-1.0); POTASSIUM 3.9 mmol/L (3.5-5.1); TOTAL BILIRUBIN 0.8 mg/dL (<0.1-1.0)
[2017-02-02 08:26] VITALS: BP 123/53
[2017-02-02 11:22] VITALS: BP 127/70
[2017-02-02 15:46] VITALS: BP 128/67
[2017-02-02 19:27] VITALS: BP 124/56
[2017-02-03 03:58] LABS: ALBUMIN 2.4 g/dL (3.4-5.0); CALCIUM 8.1 mg/dL (8.5-10.1); CREATININE 2.9 mg/dL (0.6-1.0); PHOSPHORUS 3.7 mg/dL (2.5-4.9); POTASSIUM 3.6 mmol/L (3.5-5.1)
[2017-02-03 07:31] VITALS: BP 106/59
[2017-02-03] MEDS ORDERED: AUGMENTIN 875875 MG PO (10:44)
[2017-02-03] MEDS ORDERED: MARINOL2.5 MG PO (12:53)
== END 2017-02-03 14:21 | DRG 177 ==
LOC: ER 19:54 → 4W 02-01 00:38 → EROBS 02-01 00:38 → 4W 02-01 01:27
PROVIDERS: Emergency Medicine; Hospitalist; Nurse Practitioner
DX: J69.0 Pneumonitis due to inhalation of food and vomit (principal); G93.40 Encephalopathy, unspecified; N39.0 Urinary tract infection, site not specified; N18.4 Chronic kidney disease, stage 4 (severe); I13.0 Hypertensive heart and chronic kidney disease with heart failure and stage 1 through stage 4 chronic kidney disease, or unspecified chronic kidney disease; I50.22 Chronic systolic (congestive) heart failure; F03.90 Unspecified dementia, unspecified severity, without behavioral disturbance, psychotic disturbance, mood disturbance, and anxiety; L89.152 Pressure ulcer of sacral region, stage 2; M10.9 Gout, unspecified; K21.9 Gastro-esophageal reflux disease without esophagitis; I73.9 Peripheral vascular disease, unspecified; I48.0 Paroxysmal atrial fibrillation; Z79.899 Other long term (current) drug therapy; Z88.2 Allergy status to sulfonamides; Z88.1 Allergy status to other antibiotic agents; Z86.73 Personal history of transient ischemic attack (TIA), and cerebral infarction without residual deficits; I25.2 Old myocardial infarction; Z88.8 Allergy status to other drugs, medicaments and biological substances; Z86.718 Personal history of other venous thrombosis and embolism; Z90.710 Acquired absence of both cervix and uterus; Z89.422 Acquired absence of other left toe(s)
CPT/HCPCS: 10045

== ENCOUNTER 2017-06-28 15:28 | Inpatient (IN) | payer OTHER ==
[~2017-06-28] VITALS: Ht 152.4 cm; Wt 61.2 kg
--- NOTE | ~2017-06-28 | D ---
[facility] [place] [address] DISCHARGE SUMMARY Name: JODIE STARR Room #: 361-P [facility] IN M.R.#: [id number] Admission: 06/28/17 Attend Phys: Rojas Louis MD Discharge: 07/08/17 Date of : 32 Report #: [id number] THIS REPORT FOR: //name// CC: Rojas Louis DATE OF SERVICE: 07/08/2017 SUMMARY The patient on 07/08/2017. REASON FOR ADMISSION: Acute renal failure. FINAL DIAGNOSES: 1. Acute renal failure on chronic kidney disease stage 4. 2. Hyperkalemia. 3. Hypotension. 4. Severe protein-calorie malnutrition. 5. Pleural effusion and ascites. 6. Anemia of chronic disease. 7. Dementia. 8. Elevated sed rate. CONSULTING SERVICE: Nephrology. BRIEF HISTORY: The patient is an 87-year-old -Citizen Of [place] female from [facility]. She has known chronic kidney disease stage 4, anemia of renal disease and protein-calorie malnutrition. She had developed some periorbital edema several days prior to admission and was started on Lasix. On the morning of admission, she had not eaten much and was difficult to arouse. She was brought to [facility] Emergency Room for evaluation where she was admitted for acute renal failure and altered mental status. HOSPITAL COURSE: The patient was admitted. She was started on IV fluids and IV antibiotics. Nephrology consultation was obtained. Unfortunately, her renal function did not improve. She had very little oral intake. She had continued clinical decline. The topic of hospice had been initiated. Unfortunately, she eventually was succumbed to her illness and was pronounced on 07/08/2017 at 2137. Appropriate parties were notified. <ELECTRONICALLY SIGNED> By: Rojas Louis MD 09/10/17 2222 [id number] 2206 Rojas Louis MD /nt
--- NOTE | ~2017-06-28 | EKG ---
[place] [place] [address] ELECTROCARDIOGRAM REPORT Name: JODIE STARR [id number] Admission: 06/28/17 Attend Phys: Discharge: Date of : 31 Report #: [id number] THIS REPORT FOR: //name// [facility] ED Test Date: 2017-06-28 Test Time: 15:54:51 Pat Name: JODIE STARR Department: Room: Gender: F Rasper Machine Operator: MIGUEL A : 1930 Requested By: Kaden Blackwell Order Number: [id number] MD: Galindo Barrios Measurements Intervals [place] Rate: 93 P: [place]: QRS: -41 QRSD: 87 T: 137 QT: 362 QTc: 451 Interpretive Statements Atrial fibrillation Ventricular premature complex Anterior infarct, old Nonspecific T abnormalities, lateral leads Compared to ECG 05/18/2017 16:14:20 No significant changes Electronically Signed On 06-28-2017 17:11:18 RACING MECHANIC by Galindo Barrios [email or web address] <ELECTRONICALLY SIGNED> By: Galindo Barrios MD, [facility] 06/28/17 1711 1554 155 Galindo Barrios MD, FACC /EPI
--- NOTE | ~2017-06-28 | EKG ---
[address] [address] ELECTROCARDIOGRAM REPORT Name: JODIE STARR Room #: 361- ADM IN M.R.#: [id number] Admission: 06/28/17 Attend Phys: Rojas Louis MD Discharge: Date of : 31 Report #: [id number] THIS REPORT FOR: //name// [facility] Test Date: 2017-07-05 Test Time: 08:49:09 Pat Name: JODIE STARR Department: Room: 361 Gender: F Paper Sales Manager: Guy SCHNEIDER : 1930 Requested By: Rojas Louis Order Number: [id number] MD: Varun Pardo Measurements Intervals [place] Rate: 73 P: 0 RI: 158 QRS: 58 QRSD: 94 T: 243 QT: 398 QTc: 439 Interpretive Statements Atrial fibrillation Electronically Signed On 07-05-2017 15:04:23 DOWEL INSERTING MACHINE OPERATOR by Varun Pardo [email or web address] <ELECTRONICALLY SIGNED> By: Varun Pardo MD 07/05/17 1504 0849 0849 MD MALIK Muhammad
--- NOTE | ~2017-06-28 | HC ---
[facility] [address] [place] [address] CONSULTATION Name: JODIE STARR Room #: 361-P [facility] IN M.R.#: [id number] Admission: 06/28/17 Attend Phys: Rojas Louis MD Discharge: 07/08/17 Date of : 31 Report #: [id number] THIS REPORT FOR: //name// CC: Rojas Louis REASON FOR CONSULTATION: Elevated creatinine. REASON FOR PRESENTATION: Sent from her nursing facility upon concerning about the lower extremity edema. HISTORY OF PRESENT ILLNESS: This is an 87-year-old with debility, dementia and numerous medical problems that stays at the [facility]. She has decreased p.o. intake, lower extremity edema about which the daughter was very concerned and related that to the nursing staff. The patient was sent to the Emergency Room for further evaluation and management. She is known to have chronic kidney disease and her current numbers are actually at her baseline. I am being consulted to manage her chronic kidney disease. She was evaluated on numerous occasions by many of my partners, the last of which is Dr. Christine. She was deemed not to be a candidate for any measures from the renal perspective. She suffers from many comorbid conditions including and not limited to chronic leg ulcers and edema. She has substantial dementia. She is also known to have AFib with spinal stenosis and cervical radiculopathy. She is contracted. She has a left pelvic kidney. PAST MEDICAL HISTORY: Numerous including the following. 1. Dementia. 2. Contracture. 3. Malnutrition. 4. Chronic lower extremity edema. 5. Chronic leg ulcers. 6. Chronic kidney disease. 7. AFib in the past. 8. Spinal stenosis. 9. Cervical radiculopathy. REVIEW OF SYSTEMS: Unobtainable given the patient's mental status. ALLERGIES: HEPARIN, SULFA, VANCOMYCIN. FAMILY HISTORY: Unable to obtain given the patient's mental status. SOCIAL HISTORY: She resides in a nursing facility. No reported drug or alcohol abuse. MEDICATIONS: 1. EPO. 2. Aspirin. [address] [address] CONSULTATION Name: JODIE STARR Room #: [address] [place] [address] IN M.R.#: [id number] Admission: 06/28/17 Attend Phys: Rojas Louis MD Discharge: 07/08/17 Date of : 31 Report #: [id number] 3. Calcium carbonate. ADDITIONAL PAST MEDICAL AND SURGICAL HISTORY: 1. Hysterectomy. 2. MRSA. 3. DVT. 4. Chronic venous stasis. PHYSICAL EXAMINATION: GENERAL: She is debilitated, confused, disoriented to time, place, and person. VITAL SIGNS: Blood pressure 94/61, temperature 37. HEAD AND NECK: No jugular venous distention. CHEST: No crackles. CARDIOVASCULAR: No rub. ABDOMEN: Soft, nontender. LOWER EXTREMITIES: Extensive edema. Ulcers present. LABORATORY VALUES: Reviewed. Creatinine is stable at , BUN is 72. Chest x-ray reviewed. No edema. Ultrasound pending. ASSESSMENT, IMPRESSION AND PLAN: 1. End-stage renal disease. 2. Chronic lower extremity wound. 3. Dementia and debility. 4. Anemia. 5. Abnormal white blood cell count and platelet on presentation. 6. Elevated blood sugar at 849 at one point with some fluctuating blood sugar readings. 7. From the renal perspective, the patient is not a candidate for any therapeutic intervention other than medical treatment for now. Her presentation has nothing to do with her kidney function. Her edema is chronic and this is being addressed by the primary care and the wound care. 8. Nurses are not able to obtain urine cultures; however, I will defer the management of the current active issues to the primary team. Please review Dr. Christine note from the last admission. This patient unfortunately has advanced age, debility, chronic comorbid conditions for which we can offer nothing. <ELECTRONICALLY SIGNED> By: Babita Strickland MD 07/11/17 0939 1010 1104 Babita Strickland MD /nt
--- NOTE | ~2017-06-28 | HC ---
[facility] [address] [place] [address] CONSULTATION Name: JODIE STARR Room #: 361-P ADM IN M.R.#: [id number] Admission: 06/28/17 Attend Phys: Rojas Louis MD Discharge: Date of : 31 Report #: [id number] THIS REPORT FOR: //name// CC: Rojas Louis DATE OF SERVICE: 06/29/2017 PERSONAL PHYSICIAN: Dr. Louis. CHIEF COMPLAINT: Left lower extremity ulceration. HISTORY OF PRESENT ILLNESS: This is an 87-year-old black female who is a resident of [facility], who was admitted to the hospital through the Emergency Department yesterday for altered mental status and was found to have acute renal failure and urinary tract infection. The patient has a history of chronic lower extremity edema and ulcerations of which I followed her for in the remote past. I have been asked to see the patient again in regards to these ulcerations. The patient herself is somewhat confused and not able to give me much history. The history is obtained from the old records. PAST MEDICAL HISTORY: Once again is significant for acute on chronic kidney failure and altered mental status, anemia and chronic ulceration, left lower extremities with venous insufficiency. CURRENT MEDICATIONS: Multiple, I reviewed the patient's medication list. DRUG ALLERGIES: HEPARIN, SULFA, VANCOMYCIN. SOCIAL HISTORY: The patient resides at [facility]. FAMILY HISTORY AND REVIEW OF SYSTEMS: Essentially unobtainable because of the patient's altered mental status. PHYSICAL EXAMINATION: VITAL SIGNS: Temperature 36.3, pulse 94, respiration 16, BP 97/55. GENERAL: This is an elderly black female who is arousable by name but unable to converse. HEENT: Normocephalic, atraumatic. Mucous membranes are dry. Pupils are round. Sclerae are dark. NECK: Otherwise, supple, without rigidity. LUNGS: Slightly diminished breath sounds heard throughout but no rhonchi or wheezes. HEART: Irregularly irregular without murmur. ABDOMEN: Soft, otherwise nontender. EXTREMITIES: The patient has 2+ edema bilateral lower extremities, left greater than right. On the left lower extremity in the posterolateral calf region is an [facility] [address] [place] [address] CONSULTATION Name: JODIE STARR Room #: 361-P ADM IN M.R.#: [id number] Admission: 06/28/17 Attend Phys: Rojas Louis MD Discharge: Date of : 31 Report #: [id number] ulceration which is fairly clean, approximately 75% granulation tissue, 25% slough with surrounding scar tissue from previous ulcerations. There is no erythema, warmth, or signs of cellulitis. Distal pulses are otherwise 1+ posterior tibial and dorsalis pedis bilaterally. Bilateral heels are intact. Evaluation of sacral-gluteal region shows no evidence of any open ulcerations. NEUROLOGIC: Cranial nerves 2-12 grossly intact. Motor and sensory grossly intact. LABORATORY VALUES: White count 3.2, hemoglobin 11.8. Potassium was 5.6, albumin is 3.0. IMPRESSION: 1. Chronic ulceration, left lower posterolateral calf. 2. History of multiple ulcerations, bilateral lower extremities consistent with venous insufficiency. 3. Venous insufficiency with edema. 4. Generalized debility. 5. Urinary tract infection. 6. Altered mental status. 7. Protein-calorie malnutrition - moderate with albumin 3.0. PLAN: At this time, we used a silver foam dressing placed over the left lower extremity ulceration. This will be changed every 3 days. We will encourage the patient's protein supplementation for healing. At this time, the patient does not appear to be a good candidate for physical and occupational therapy given her overall generalized debility. We will continue to follow the patient. <ELECTRONICALLY SIGNED> By: Vincent Espino MD 07/04/17 1316 1312 1918 Vincent Espino MD /nt
[2017-06-28 15:28] VITALS: BP 100/56
[~2017-06-28 15:28] MED LIST changes: +AUGMENTIN 875875 MG PO; +CARDIZEM CD120 MG PO; +CEFUROXIME250 MG PO
[2017-06-28 15:52] LABS: URINE BILIRUBIN NEGATIVE (Negative); URINE BLOOD 2+ (Negative); URINE CLARITY CLEAR; URINE COLOR YELLOW; URINE GLUCOSE-RANDOM* NEGATIVE (Negative); URINE KETONES NEGATIVE (Negative); URINE NITRITE-REFLEX NEGATIVE (Negative); URINE PROTEIN (DIPSTICK) 1+ (Negative); URINE UROBILINOGEN 0.2 E.U./dl (0.2-1.0)
[2017-06-28 15:54] LABS: HEMATOCRIT 36.5 % (37.0-47.0); HEMOGLOBIN 11.7 gm/dL (12.0-15.0); MCH 31.2 pg (26.0-34.0); MCV 97.2 fL (80.0-100.0); RBC 3.76 mil/uL (4.20-5.00); RDW 16.5 % (10.5-14.5); URINE LEUKOCYTES-REFLEX 1+ (Negative); WBC 2.7 thou/uL (4.0-11.0)
[2017-06-28 15:57] LABS: CASTS None Seen /LPF (None Seen); SQUAMOUS 0-3 Few /LPF (0-3); URINE RBC 3-10 Few /HPF (0-2)
[2017-06-28 15:58] LABS: CRYSTALS None Seen /LPF (None Seen)
[2017-06-28 16:03] LABS: CALCIUM 8.9 mg/dL (8.5-10.1); CREATININE 4.8 mg/dL (0.6-1.0); POTASSIUM 5.3 mmol/L (3.5-5.1)
[2017-06-28 16:09] LABS: TOTAL BILIRUBIN 0.5 mg/dL (<0.1-1.0); TOTAL PROTEIN 7.3 g/dL (6.4-8.2)
[2017-06-28 16:34] LABS: ABSOLUTE NEUTROPHILS 1.8 thou/uL (1.4-8.2); ANISOCYTOSIS 1+; LARGE PLATELETS RARE
[2017-06-28 16:35] LABS: PLATELET COUNT 58 thou/uL (150-400)
[2017-06-28 19:36] VITALS: BP 103/63
[2017-06-28 21:15] VITALS: BP 107/64
[2017-06-28 21:20] VITALS: BP 107/64
[2017-06-29 05:00] VITALS: BP 113/79
[2017-06-29 06:07] LABS: HEMOGLOBIN 11.8 gm/dL (12.0-15.0); WBC 3.2 thou/uL (4.0-11.0)
[2017-06-29 06:09] LABS: HEMATOCRIT 37.6 % (37.0-47.0); MCHC 31.3 g/dL (28.0-37.0); MCV 99.1 fL (80.0-100.0); RBC 3.79 mil/uL (4.20-5.00); RDW 16.1 % (10.5-14.5)
[2017-06-29 06:18] LABS: CREATININE 4.8 mg/dL (0.6-1.0); POTASSIUM 5.6 mmol/L (3.5-5.1)
[2017-06-29 08:36] VITALS: BP 97/55
[2017-06-29 15:24] VITALS: BP 107/61
[2017-06-29 19:28] VITALS: BP 114/74
[2017-06-30 00:12] VITALS: BP 119/72
[2017-06-30 03:58] VITALS: BP 115/72
[2017-06-30 08:49] VITALS: BP 110/72
[2017-06-30 12:26] VITALS: BP 120/82
[2017-06-30 14:06] LABS: CALCIUM 8.5 mg/dL (8.5-10.1); CREATININE 4.9 mg/dL (0.6-1.0)
[2017-06-30 17:35] VITALS: BP 120/85
[2017-06-30 20:13] VITALS: BP 11/66; BP 111/66
[2017-07-01 00:23] VITALS: BP 99/62
[2017-07-01 04:40] VITALS: BP 100/68
[2017-07-01 05:54] LABS: RBC 2.8 mil/uL (4.20-5.00)
[2017-07-01 05:55] LABS: HEMATOCRIT 32.5 % (37.0-47.0); MCH 31.5 pg (26.0-34.0); MCHC 27.2 % (28.0-37.0); MCV 115.8 fL (80.0-100.0); RDW 18.9 % (10.5-14.5)
[2017-07-01 05:57] LABS: HEMOGLOBIN 8.8 gm/dL (12.0-15.0); WBC 1.9 thou/uL (4.0-11.0)
[2017-07-01 06:33] LABS: CALCIUM 6.9 mg/dL (8.5-10.1); CREATININE 4.3 mg/dL (0.6-1.0)
[2017-07-01 10:06] VITALS: BP 111/79
[2017-07-01 17:48] VITALS: BP 120/84
[2017-07-01 19:28] VITALS: BP 112/85
[2017-07-02 04:07] VITALS: BP 107/65
[2017-07-02 06:21] LABS: HEMATOCRIT 37.1 % (37.0-47.0)
[2017-07-02 06:23] LABS: HEMOGLOBIN 11.4 gm/dL (12.0-15.0)
[2017-07-02 06:34] LABS: CALCIUM 8.4 mg/dL (8.5-10.1); CREATININE 4.7 mg/dL (0.6-1.0); POTASSIUM 4.9 mmol/L (3.5-5.1)
[2017-07-02 08:21] VITALS: BP 92/61
[2017-07-02 15:48] VITALS: BP 94/63
[2017-07-02 20:00] VITALS: BP 100/54
[2017-07-03 03:43] VITALS: BP 104/70
[2017-07-03 06:30] LABS: ALBUMIN 2.6 g/dL (3.4-5.0); CALCIUM 8.6 mg/dL (8.5-10.1); CREATININE 4.7 mg/dL (0.6-1.0); POTASSIUM 4.8 mmol/L (3.5-5.1)
[2017-07-03 10:07] VITALS: BP 94/61
[2017-07-03 12:30] VITALS: BP 94/69
[2017-07-03 17:19] VITALS: BP 99/71
[2017-07-03 19:40] VITALS: BP 113/61
[2017-07-04 00:51] VITALS: BP 99/57
[2017-07-04 04:11] VITALS: BP 117/93
[2017-07-04 06:31] LABS: CALCIUM 8.4 mg/dL (8.5-10.1); CREATININE 4.7 mg/dL (0.6-1.0); POTASSIUM 4.6 mmol/L (3.5-5.1)
[2017-07-04 08:00] VITALS: BP 117/94
[2017-07-04 20:40] VITALS: BP 110/61
[2017-07-05 04:19] VITALS: BP 103/52
[2017-07-05 05:59] LABS: MCHC 31.3 g/dL (28.0-37.0); WBC 4.9 thou/uL (4.0-11.0)
[2017-07-05 06:01] LABS: HEMOGLOBIN 12.5 gm/dL (12.0-15.0); MCV 99.2 fL (80.0-100.0); RBC 4.03 mil/uL (4.20-5.00)
[2017-07-05 06:06] LABS: CALCIUM 8.6 mg/dL (8.5-10.1); CREATININE 4.9 mg/dL (0.6-1.0); POTASSIUM 5.3 mmol/L (3.5-5.1)
[2017-07-05 08:25] VITALS: BP 85/55
[2017-07-05 10:07] LABS: TROPONIN-I 0.15 ng/mL (<0.06)
[2017-07-05 13:25] VITALS: BP 77/42
[2017-07-05 15:37] VITALS: BP 83/53
[2017-07-05 20:10] VITALS: BP 95/55
[2017-07-06 05:10] VITALS: BP 97/55
[2017-07-06 06:30] LABS: CALCIUM 8.7 mg/dL (8.5-10.1); CREATININE 5.1 mg/dL (0.6-1.0); POTASSIUM 5.6 mmol/L (3.5-5.1)
[2017-07-06 08:00] VITALS: BP 100/67
[2017-07-06 15:01] VITALS: BP 92/49
[2017-07-06 19:14] VITALS: BP 117/58
[2017-07-07 03:42] VITALS: BP 105/63
[2017-07-07 06:21] LABS: HEMOGLOBIN 11.5 gm/dL (12.0-15.0); RDW 17.3 % (10.5-14.5)
[2017-07-07 06:25] LABS: HEMATOCRIT 36.4 % (37.0-47.0); MCH 31.3 pg (26.0-34.0); MCHC 31.5 g/dL (28.0-37.0); MCV 99.2 fL (80.0-100.0); RBC 3.67 mil/uL (4.20-5.00)
[2017-07-07 06:30] LABS: CALCIUM 8.1 mg/dL (8.5-10.1); CREATININE 5.2 mg/dL (0.6-1.0); POTASSIUM 5.1 mmol/L (3.5-5.1)
[2017-07-07 07:51] VITALS: BP 106/63
[2017-07-07 15:09] VITALS: BP 103/71
[2017-07-07 19:45] VITALS: BP 120/67
[2017-07-07 23:13] LABS: URINE CLARITY CLOUDY; URINE COLOR YELLOW; URINE GLUCOSE-RANDOM* NEGATIVE (Negative); URINE PROTEIN (DIPSTICK) 3+ (Negative); URINE SPECIFIC GRAVITY 1.025 (1.005-1.035)
[2017-07-07 23:14] LABS: URINE BLOOD 3+ (Negative); URINE KETONES TRACE (Negative); URINE LEUKOCYTES 2+ (Negative); URINE NITRITE NEGATIVE (Negative); URINE UROBILINOGEN 0.2 E.U./dl (0.2-1.0)
[2017-07-07 23:24] LABS: ICTOTEST (BILI CONFIRMATORY) Negative (Negative); URINE BILIRUBIN NEGATIVE (Negative)
[2017-07-07 23:25] LABS: BACTERIA >30 Many /HPF (None Seen); MUCUS 4-6 Moderate strn/LPF (None Seen); SQUAMOUS >10 Many /LPF (0-3); URINE RBC >20 Many /HPF (0-2); URINE WBC >25 Many /HPF (0-5)
[2017-07-07 23:26] LABS: CRYSTALS None Seen /LPF (None Seen); HYALINE CASTS 0-3 Few /LPF (None Seen); TRANSITIONAL EPITHEL CELL >10 Many /LPF (None Seen); URIC ACID CRYSTALS 0-3 Few /LPF (None Seen)
[2017-07-07 23:30] LABS: URINE CREATININE-RANDOM* 152.9 mg/dL
[2017-07-07 23:52] LABS: URINE PROTEIN-RANDOM* 639.4 mg/dL (<11.9)
[2017-07-08 00:05] VITALS: BP 104/72
[2017-07-08 00:58] LABS: WBC CLUMPS Packed (None Seen)
[2017-07-08 00:59] LABS: YEAST Present (None Seen)
[2017-07-08 03:53] LABS: CALCIUM 8.5 mg/dL (8.5-10.1); CREATININE 5.4 mg/dL (0.6-1.0); PHOSPHORUS 7.5 mg/dL (2.5-4.9); POTASSIUM 5.3 mmol/L (3.5-5.1)
[2017-07-08 04:05] VITALS: BP 103/81
[2017-07-08 08:02] VITALS: BP 125/73
[2017-07-08 17:49] VITALS: BP 112/75
[2017-07-08 20:00] VITALS: BP 122/79
== END 2017-07-08 21:47 | DRG 70 ==
LOC: ER 15:28 → 3W 17:27 → EROBS 17:27 → 3W 21:20
PROVIDERS: Hospitalist; Internal Medicine; Physician Assistant
DX: G93.41 Metabolic encephalopathy (principal); E43 Unspecified severe protein-calorie malnutrition; N18.6 End stage renal disease; N17.9 Acute kidney failure, unspecified; N39.0 Urinary tract infection, site not specified; L97.229 Non-pressure chronic ulcer of left calf with unspecified severity; R18.8 Other ascites; I12.0 Hypertensive chronic kidney disease with stage 5 chronic kidney disease or end stage renal disease; F03.90 Unspecified dementia, unspecified severity, without behavioral disturbance, psychotic disturbance, mood disturbance, and anxiety; I48.0 Paroxysmal atrial fibrillation; M10.9 Gout, unspecified; I73.9 Peripheral vascular disease, unspecified; K21.9 Gastro-esophageal reflux disease without esophagitis; E16.2 Hypoglycemia, unspecified; I87.2 Venous insufficiency (chronic) (peripheral); E86.0 Dehydration; E87.5 Hyperkalemia; I83.023 Varicose veins of left lower extremity with ulcer of ankle; D63.8 Anemia in other chronic diseases classified elsewhere; I95.9 Hypotension, unspecified; Z86.718 Personal history of other venous thrombosis and embolism; Z90.710 Acquired absence of both cervix and uterus; Z89.422 Acquired absence of other left toe(s); Z88.1 Allergy status to other antibiotic agents; Z88.2 Allergy status to sulfonamides; Z88.8 Allergy status to other drugs, medicaments and biological substances; Z68.26 Body mass index [BMI] 26.0-26.9, adult; Z79.899 Other long term (current) drug therapy; Z28.21 Immunization not carried out because of patient refusal
CPT/HCPCS: 10080